=== PATIENT | male | born 2000 | race Caucasian/White ===

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

== ENCOUNTER 2020-05-26 12:53 | Emergency (ER) | payer OTHER ==
[~2020-05-26] VITALS: Ht 182.9 cm; Wt 130.6 kg
[2020-05-26 12:59] VITALS: Ht 182.9 cm; Wt 130.6 kg
[2020-05-26 14:30] VITALS: BP 146/102
== END 2020-05-26 14:30 | disposition home or self-care (01) ==
LOC: ED 12:53
DX: I10 Essential (primary) hypertension (principal); J45.909 Unspecified asthma, uncomplicated